=== PATIENT | male | born 2000 | race Caucasian/White ===

== ENCOUNTER 2022-10-29 05:55 | Emergency (ER) | payer BC, OTHER ==
[~2022-10-29] VITALS: Ht 162.6 cm; Wt 95.3 kg
--- NOTE | 2022-10-29 05:55 | NUR ---
PT BIB [facility], PREBOOK. TAKEN TO CHAIR
[2022-10-29 06:24] VITALS: BP 161/61
--- NOTE | 2022-10-29 06:49 | NUR ---
PATIENT SEEN AND EVALUATED BY MONA HARMON. NO NURSING INTERVENTIONS.
--- NOTE | 2022-10-29 06:50 | NUR ---
PATIENT BIB [facility]ICE [facility]. PATIENT EXAMINED BY DR. HARMON. PATIENT MEDICALLY CLEARED AND RELEASED IN CUSTODY IN STABLE CONDITION. ORIGINAL PRE-BOOK FORM GIVEN TO OFFICER STEPHEN.
== END 2022-10-29 06:50 ==
LOC: MED 05:55
DX: Z02.89 Encounter for other administrative examinations (principal); Z98.890 Other specified postprocedural states
CPT/HCPCS: 99283

== ENCOUNTER 2023-02-16 07:26 | Emergency (ER) | payer BC, OTHER ==
[~2023-02-16] VITALS: Ht 162.6 cm; Wt 99.8 kg
[2023-02-16 07:43] VITALS: BP 150/93
--- NOTE | 2023-02-16 07:45 | NUR ---
Patient ambulated to bed 7
--- NOTE | 2023-02-16 07:48 | NUR ---
Dr. Tolliver evaluating patient at bedside.
--- NOTE | 2023-02-16 07:50 | NUR ---
The patient's care was reviewed and supervised by DIDI MACHADO RN.
[2023-02-16] MEDS ORDERED: AMOX1TAB8 PO (07:55)
--- NOTE | 2023-02-16 08:00 | NUR ---
The patient's care was reviewed and supervised by DIDI MACHADO RN.
--- NOTE | 2023-02-16 08:00 | NUR ---
The patient's care was reviewed and supervised by DIDI MACHADO RN.
--- NOTE | 2023-02-16 08:26 | NUR ---
Patient discharged with v/s stable. Written and verbal after care instructions DENTAL ABSCESS given and explained. Patient verbalized understanding. Ambulatory with steady gait. All questions addressed prior to discharge. Advised to follow up with PMD. PT. WITH NO RESPIRATORY DIFFICULTY, NO DROOLING, ABLE TO SWALLOW WITH NO DIFFICULTY. NO DISTRESS. PT. STATES THAT HE WILL MAKE "DENTAL APPOINTMENT TODAY"
== END 2023-02-16 08:25 | disposition home or self-care (01) ==
LOC: MED 07:26
DX: R22.0 Localized swelling, mass and lump, head (principal); Z88.5 Allergy status to narcotic agent; Z88.8 Allergy status to other drugs, medicaments and biological substances; Z79.899 Other long term (current) drug therapy
CPT/HCPCS: 99283